=== PATIENT | female | born 1995 | race American Indian/Alaskan Native ===

== ENCOUNTER 2021-06-26 04:35 | Inpatient (IN) | payer MEDICAID, OTHER ==
[2021-06-26] MEDS ORDERED: BUTORPHANOL 2 MG/1 ML INJ IV PRN (05:58)
[2021-06-26] MEDS ORDERED: LIDOCAINE (2%) 20 MG/1 ML VIAL 20 ML MDV INFILTRATI NR (07:24)
[2021-06-26] MEDS ORDERED: AMPICILLIN/NS 2 GM/100 ML 2 GM/100 ML BAG IV ONE (07:24)
[2021-06-26] MEDS ORDERED: ONDANSETRON 4 MG/2 ML INJ IV PRN (07:24)
[2021-06-26] MEDS ORDERED: NALOXONE 0.4 MG/1 ML INJ IV PRN (07:24)
[2021-06-26] MEDS ORDERED: CARBOPROST TROMETHAMINE 250 MCG/1 ML INJ IM PRN ×2 (07:24→07:27)
[2021-06-26] MEDS ORDERED: miSOPROStol 200 MCG TAB PR PRN ×2 (07:24→07:27)
[2021-06-26] MEDS ORDERED: OXYTOCIN 10 UNIT/1 ML INJ IM PRN ×2 (07:24→07:27)
[2021-06-26] MEDS ORDERED: METHYLERGONOVINE MALEATE 0.2 MG/ML VIAL IM PRN ×2 (07:24→07:27)
[2021-06-26] MEDS ORDERED: TERBUTALINE 1 MG/1 ML INJ SUB-Q PRN ×2 (07:24→07:27)
[2021-06-26] MEDS ORDERED: LOPERAMIDE 2 MG CAP PO PRN ×2 (07:24→07:27)
[2021-06-26] MEDS ORDERED: ePHEDrine SULFATE 50 MG/1 ML INJ IV PRN ×3 (07:27→08:51)
[2021-06-26] MEDS ORDERED: MINERAL OIL 30 ML ORAL LIQD PO PRN ×2 (07:27→22:00)
[2021-06-26] MEDS ORDERED: LIDOCAINE (2%) 20 MG/1 ML VIAL 20 ML MDV INFILTRATI ONE (07:27)
[2021-06-26] MEDS ORDERED: NalbUPHINE 10 MG/1 ML INJ IV PRN (07:27)
[2021-06-26] MEDS ORDERED: LACTATED RINGERS 1,000 ML IV SCH (07:30)
[2021-06-26 07:46] LABS: Hematocrit 31.7 % (30.3-42.9); Mean Corpuscular HGB Conc 31 % (30-34); Mean Corpuscular Volume 75 fl (79-97); Platelet Count 286 K/mm3 (140-440); Red Blood Count 4.23 M/mm3 (3.65-5.03)
[2021-06-26] MEDS ORDERED: OXYTOCIN DRIP 30 UNITS/500 ML BAG IV SCH ×2 (08:00)
[2021-06-26] MEDS ORDERED: ACETAMINOPHEN 325 MG TAB PO PRN (08:00)
[2021-06-26] MEDS ORDERED: fentaNYL 100 MCG/2 ML INJ IV PRN (08:00)
[2021-06-26] MEDS: LACTATED RINGERS 1,000 ML IV SCH ×2 (08:19→15:51)
[2021-06-26 08:32] LABS: Red Cell Distribution Width 29.2 % (13.2-15.2)
--- NOTE | 2021-06-26 08:51 | Anesthesia Consultation ---
Anesthesia Consult and Med Hx Date of service: 06/26/21 - Airway Anesthetic Teeth Evaluation: Good ROM Head & Neck: Adequate Mental/Hyoid Distance: Adequate Mallampati Class: Class II Intubation Access Assessment: Good - Pulmonary Exam CTA: Yes - Cardiac Exam Cardiac Exam: RRR - Pre-Operative Health Status ASA Pre-Surgery Classification: ASA2 Proposed Anesthetic Plan: Epidural - Pulmonary Hx Smoking: No Hx Asthma: No Hx Respiratory Symptoms: No SOB: No COPD: No Home Oxygen Therapy: No Hx Pneumonia: No Hx Sleep Apnea: No - Cardiovascular System Hx Hypertension: No Hx Coronary Artery Disease: No Hx Heart Attack/AMI: No Hx Angina: No Hx Percutaneous Transluminal Coronary Angioplasty (PTCA): No Hx Cardia Arrhythmia: No Hx Pacemaker: No Hx Internal Defibrillator: No Hx Valvular Heart Disease: No Hx Heart Murmur: No Hx Peripheral Vascular Disease: No - Central Nervous System Hx Neuromuscular Disorder: No Hx Seizures: No CVA: No Hx Back Pain: Yes Hx Psychiatric Problems: No - Gastrointestinal Hx Ulcer: No Hx Gastroesophageal Reflux Disease: Yes - Endocrine Hx Renal Disease: No Hx End Stage Renal Disease: No Hx Cirrhosis: No Hx Liver Disease: No Hx Insulin Dependent Diabetes: No Hx Non-Insulin Dependent Diabetes: No Hx Thyroid Disease: No Hx Hypothyroidism: No Hx Hyperthyroidism: No - Hematic Hx Anemia: Yes Hx Sickle Cell Disease: No - Other Systems Hx Alcohol Use: No Hx Substance Use: No Hx Cancer: No Hx Obesity: No
[2021-06-26] MEDS ORDERED: NALOXONE 2 MG/2 ML INJ IV PRN (09:00)
[2021-06-26] MEDS ORDERED: AZITHROMYCIN 250 MG TAB PO NR (09:00)
--- NOTE | 2021-06-26 09:40 | Progress Note ---
Labor Epidural - Labor Epidural Start Time: 09:19 Stop Time: :25 Performed by:: JHOAN BILLINGSLEY Procedure: Patient is requesting a laboring epidural for laboring pain. Patient IDed, H&P reviewed, all questions and concerns were answered, and consent was signed. Timeout was performed at bedside. Patient in sitting position. Sterile prep and drape was performed. [3] ml of 1% lidocaine skin wheal at L[3]- L [4]. 18- gauge Honey epidural needle was advanced to loss of resistance with saline technique 6cm. Negative CSF negative blood. Epidural catheter advanced to [10] centimeters. [NEGATIVE] Aspiration [NEGATIVE] test dose. Sterile dressing applied. Patient tolerated procedure.
[2021-06-26] MEDS: fentaNYL-BUPIV 2 MCG/ML-0.125% 200 MCG/100 ML BAG EPIDURAL SCH ×2 (10:12→17:40)
[2021-06-26] MEDS: AMPICILLIN/NS 1 GM/50 ML 1 GM/50 ML BAG IV SCH ×3 (12:08→20:11)
--- NOTE | 2021-06-26 13:24 | History and Physical Report ---
History of Present Illness Date of examination: 06/26/21 Date of admission: 06/26/21 07:27 Chief complaint: contractions History of present illness: Pt is a 26 year old -[place] female VAZQUEZ 07/08/21 at 38w2d presents to triage with contractions and cervical change from 3 to 5 cm during her evaluation. She denies vaginal bleeding or leakage of fluid. She has had care at [facility] since 10 wks with comanagement by [facility] complicated by gestational diabetes with inconsistent glucose monitoring, chlamydia diagnosed on 06/08 with treatment of 06/15/21 without test of cure, abnormal quad screen with [facility] referral, anemia on iron supplementation, seizure disorder without meds. She is GBS positive. Past History Past Medical History: no pertinent history Past Surgical History: no surgical history HEEL [facility] FIRST History: chlamydia (per HPI) Family/Genetic History: none Social history: no significant social history - Obstetrical History Expected Date of Delivery: 07/08/21 Actual Gestation: 38 Week(s) 2 Day(s) : 2 Para: 0 Hx # Term Pregnancies: 0 Number of Pregnancies: 0 Spontaneous Abortions: 1 Induced : 0 Number of Living Children: 0 Medications and Allergies Allergies Allergy/AdvReac Type Severity Reaction Status Date / Time iodine Allergy Anaphylaxis Verified 06/26/21 10:29 seafood Allergy Severe Anaphylaxis Uncoded 06/26/21 10:29 Home Medications Medication Instructions Recorded Confirmed Last Taken Type Iron Fum,Ps/Folic/Bcomp,C No.9 1 cap PO DAILY 06/26/21 06/26/21 06/25/21 10:00 History [Integra Plus Capsule] Vit-Fe Fumar-FA [ 1 tab PO QDAY 06/26/21 06/26/21 06/25/21 10:00 History Vitamin] Active Meds: Active Medications Acetaminophen (Acetaminophen 325 Mg Tab) 650 mg PO Q4H PRN PRN Reason: Pain, Mild (1-3) Butorphanol Tartrate (Butorphanol 2 Mg/1 Ml Inj) 1 mg IV Q2H PRN PRN Reason: Labor Pain Last Admin: 06/26/21 06:17 Dose: 1 mg Documented by: Carboprost Tromethamine (Carboprost Tromethamine 250 Mcg/1 Ml Inj) 250 mcg IM ONCE PRN PRN Reason: Uterine Bleeding Stop: 06/27/21 07:23 Ephedrine Sulfate (Ephedrine Sulfate 50 Mg/1 Ml Inj) 10 mg IV Q2M PRN PRN Reason: Hypotension Last Admin: 06/26/21 11:28 Dose: 10 mg Documented by: Fentanyl (Fentanyl 100 Mcg/2 Ml Inj) 100 mcg IV Q2H PRN PRN Reason: Pain,Severe (7-10) LABOR PAIN Oxytocin/Sodium Chloride (Pitocin/Ns 30 Unit/500ml) 30 units in 500 mls @ 2 mls/hr IV TITR JOSE CRUZ; Protocol Last Titration: 06/26/21 12:41 Dose: 2 mls/hr, 2 mls/hr Documented by: Lactated Ringer's (Lactated Ringers) 1,000 mls @ 125 mls/hr IV DIRECT JOSE CRUZ Last Admin: 06/26/21 08:19 Dose: 125 mls/hr Documented by: Oxytocin/Sodium Chloride (Pitocin/Ns 30 Unit/500ml) 30 units in 500 mls @ 40 mls/hr IV TITR JOSE CRUZ; Protocol Ampicillin Sodium (Ampicillin/Ns 1 Gm/50 Ml) 1 gm in 50 mls @ 100 mls/hr IV Q4H JOSE CRUZ; Protocol Last Admin: 06/26/21 12:08 Dose: 100 mls/hr Documented by: Fentanyl/Bupivacaine/Sodium Chlor (Fentanyl-Bupiv 2 Mcg/Ml-0.125%) 200 mcg in 100 mls @ 12 mls/hr EPIDURAL TITR JOSE CRUZ; Protocol Last Admin: 06/26/21 10:12 Dose: 12 mls/hr Documented by: Lidocaine (Lidocaine (2%) 20 Mg/1 Ml Vial 20 Ml Mdv) 20 ml INFILTRATI ONCE NR Stop: 06/26/21 20:00 Loperamide HCl (Loperamide 2 Mg Cap) 2 mg PO ONCE PRN PRN Reason: give with Hemabate Stop: 06/27/21 07:23 Methylergonovine Maleate (Methylergonovine Maleate 0.2 Mg/Ml Vial) 0.2 mg IM ONCE PRN PRN Reason: Uterine Bleeding Stop: 06/27/21 07:23 Mineral Oil (Mineral Oil 30 Ml Oral Liqd) 30 ml PO QHS PRN PRN Reason: Constipation Misoprostol (Misoprostol 200 Mcg Tab) 800 mcg OR ONCE PRN PRN Reason: Uterine Bleeding Stop: 06/27/21 07:23 Nalbuphine HCl (Nalbuphine 10 Mg/1 Ml Inj) 10 mg IV Q2H PRN PRN Reason: Pain, Moderate (4-6) Naloxone HCl (Naloxone 2 Mg/2 Ml Inj) 0.2 mg IV Q5M PRN PRN Reason: Respiratory sedation Ondansetron HCl (Ondansetron 4 Mg/2 Ml Inj) 4 mg IV Q8H PRN PRN Reason: Nausea And Vomiting Oxytocin (Oxytocin 10 Unit/1 Ml Inj) 10 unit IM ONCE PRN PRN Reason: Uterine Bleeding Stop: 06/27/21 07:23 Terbutaline Sulfate (Terbutaline 1 Mg/1 Ml Inj) 0.25 mg SUB-Q ONCE PRN PRN Reason: Hyperstimulation/Hypertonicity Stop: 06/27/21 07:23 Review of Systems All systems: negative - Vital Signs Vital signs: Vital Signs Temp 97.9 F 06/26/21 04:44 Temp Pulse Resp BP Pulse Ox 98.1 F 116 H 16 107/50 100 06/26/21 11:33 06/26/21 13:23 06/26/21 11:33 06/26/21 13:11 06/26/21 13:23 - Physical Exam Breasts: Positive: deferred Abdomen: Positive: soft (obese ) Uterus: Positive: enlarged (gravid ) Extremities: Positive: normal - Obstetrical FHR: auscultation normal Cervical Dilatation: 5 (per RN) Uterine Contraction Pattern: Regular Uterine Tone Measurement Phase: Resting Uterine Contraction Intensity: Moderate Results Result Diagrams: 06/26/21 06:00 Abnormal lab results 06/26/21 Range/Units 06:00 WBC 11.9 H (4.5-11.0) K/mm3 Hgb 10.0 L (10.1-14.3) gm/dl MCV 75 L (79-97) fl MCH 24 L (28-32) pg RDW 29.2 H (13.2-15.2) % All other labs normal. Assessment and Plan A: IUP at 38w2d Active Labor Gestational Diabetes A1 Chlamydia diagnosed on 06/08 with treatment of 06/15/21 without test of cure Abnormal quad screen Anemia on iron supplementation Seizure disorder GBS positive Iodine Allergy P: Admit to labor and delivery Ampicillin for GBS prophylaxis Azithromycin 1g PO once Accuchek q 1 hour Routine intrapartum care
--- NOTE | 2021-06-26 13:59 | Event Note ---
Date: 06/26/21 Pt comfortable with epidural. Category II tracing. SVE: 5.5/100/-1. AROM- clear fluid. Continue to monitor clinical status.
[2021-06-26] MEDS ORDERED: BUPIVACAINE/PF (0.25%) 2.5 MG/ML 10 ML VIAL INFILTRATI ONE (21:02)
--- NOTE | 2021-06-27 01:37 | Procedure Note ---
OB Delivery Note - Delivery Date of Delivery: 06/27/21 Surgeon: LYNN NOLAN Estimated blood loss: 100cc - Vaginal Delivery presentation: vertex Delivery position: OA Delivery monitor: external FHT, external uterine Route of delivery: Delivery cord: nuchal cord, 3 umbilical vessels Delivery laceration: none Anesthesia: epidural - A at 1 minute: 8 at 5 minutes: 9 Gender: Female (weight 7lbs 1oz)
[2021-06-27] MEDS ORDERED: PROMETHAZINE 25 MG RECT SUPP PR PRN (01:38)
[2021-06-27] MEDS ORDERED: MAGNESIUM HYDROXIDE (MOM) ORAL LIQD UDC PO PRN (01:38)
[2021-06-27] MEDS ORDERED: PROMETHAZINE 25 MG TAB PO PRN (01:38)
[2021-06-27] MEDS ORDERED: diphenhydrAMINE 25 MG CAP PO PRN (01:38)
[2021-06-27] MEDS ORDERED: ONDANSETRON 4 MG/2 ML INJ IV PRN (01:38)
[2021-06-27] MEDS ORDERED: LANOLIN/ZINC/DIMETHICONE (LANSINOH) 7 GM TP PRN (01:38)
[2021-06-27] MEDS ORDERED: WITCH HAZEL/ GLYCERIN PAD TP PRN (01:38)
[2021-06-27] MEDS ORDERED: HYDROcodone/ACETAMINOPHEN 5-325 MG TAB PO PRN (01:40)
[2021-06-27] MEDS: IBUPROFEN 600 MG TAB PO SCH ×3 (04:01→23:03)
--- NOTE | 2021-06-27 14:56 | Post Anesthesia Evaluation ---
- Post Anesthesia Evaluation Patient Participated: Yes Airway Patent: Yes Stable Respiratory Function: Yes Nausea/Vomiting: No Temp > 96.8F: Yes Pain Manageable: Yes Adequeate Hydration: Yes Anesthesia Complications: No Block Receding Appropriately: Yes Patient on Ventilator: No
[2021-06-27 15:06] LABS: Hematocrit 29.6 % (30.3-42.9)
[2021-06-28] MEDS: IBUPROFEN 600 MG TAB PO SCH ×2 (05:59→11:19)
--- NOTE | 2021-06-28 08:33 | Discharge Summary ---
Providers - Providers Date of Admission: 06/26/21 07:27 Date of discharge: 06/28/21 Attending physician: LYNN NOLAN Primary care physician: LYNN NOLAN Hospitalization Reason for admission: active labor Delivery: Episiotomy: none Laceration: none Other procedures: none complications: none Discharge diagnosis: IUP at term delivered baby: female Hospital course: Pt is a 26 year old -Monegas[place] female VAZQUEZ 07/08/21 at 38w2d presents to triage with contractions and cervical change from 3 to 5 cm during her evaluation. She denies vaginal bleeding or leakage of fluid. She has had care at [facility] since 10 wks with comanagement by [facility] complicated by gestational diabetes with inconsistent glucose monitoring, chlamy cheri diagnosed on 06/08 with treatment of 06/15/21 without test of cure, abnormal quad screen with [facility] referral, anemia on iron supplementation, seizure disorder without meds. She is GBS positive. Pt went on to have of viable female infant without difficulty. Condition at discharge: Good Disposition: DC-01 TO HOME OR SELFCARE - Discharge Diagnoses (1) Anemia Status: Acute Qualifiers: Anemia type: iron deficiency Comment: Asymptomatic Increase iron rich foods into diet Continue daily iron supplementation as directed Plan - Discharge Medications Prescriptions: Ferrous Sulfate [Feosol 325 MG tab] 325 mg PO BID 30 Days #60 tablet - Provider Discharge Summary Activity: routine, no sex for 6 weeks, no heavy lifting 4 weeks, no strenuous exercise Diet: other (Iron rich diet) Instructions: routine Additional instructions: [] Smoking cessation referral if applicable(refer to patient education folder for contact #) [] Refer to [facility] Booklet Call your doctor immediately for: * Fever > 100.5 * Heavy vaginal bleeding ( >1 pad per hour) * Severe persistent headache * Shortness of breath * Reddened, hot, painful area to leg or breast - Follow up plan Follow up: LYNN NOLAN MD [Primary Care Provider] - 6 Weeks
[2021-06-28] MEDS ORDERED: FERROUS SULFATE 325 MG TAB PO SCH (10:00)
[2021-06-28 14:31] VITALS: BP 117/68
== END 2021-06-28 15:40 | disposition home or self-care (01) | DRG 806 ==
LOC: TRG 04:35 → APU 04:41 → LD 07:27 → TRG 07:27 → OB 06-27 03:32
PROVIDERS: ADMIT Obstetrics & Gynecology; ATTEND Obstetrics & Gynecology
PROC: 10E0XZZ Delivery of Products of Conception, External Approach (ICD-10-PCS; principal; 2021-06-27)
PROC: 3E0R3BZ Introduction of Anesthetic Agent into Spinal Canal, Percutaneous Approach (ICD-10-PCS; 2021-06-27)
PROC: 00HU33Z Insertion of Infusion Device into Spinal Canal, Percutaneous Approach (ICD-10-PCS; 2021-06-27)
PROC: 10907ZC Drainage of Amniotic Fluid, Therapeutic from Products of Conception, Via Natural or Artificial Opening (ICD-10-PCS; 2021-06-27)
DX: O24.429 Gestational diabetes mellitus in childbirth, unspecified control (principal); O99.354 Diseases of the nervous system complicating childbirth; Z37.0 Single live birth; O98.82 Other maternal infectious and parasitic diseases complicating childbirth; O99.62 Diseases of the digestive system complicating childbirth; Z3A.38 38 weeks gestation of pregnancy; D64.9 Anemia, unspecified; O99.02 Anemia complicating childbirth; K21.9 Gastro-esophageal reflux disease without esophagitis; Z20.822 Contact with and (suspected) exposure to COVID-19; Z91.041 Radiographic dye allergy status; Z91.013 Allergy to seafood; O99.824 Streptococcus B carrier state complicating childbirth; G40.909 Epilepsy, unspecified, not intractable, without status epilepticus; O69.81X0 Labor and delivery complicated by cord around neck, without compression, not applicable or unspecified
CPT/HCPCS: 36415; 59025; 82962; 85014; 85018; 85027; 86592; 86850; 86900; 86901; 99211; G0378; G0463; J0290; J0595; J2590; J7120; U0003